=== PATIENT | female | born 1955 | race Caucasian/White ===

== ENCOUNTER 2019-06-10 22:08 | Emergency (ER) | payer OTHER ==
[~2019-06-10] VITALS: Ht 172.7 cm; Wt 108.9 kg
[2019-06-10] MEDS ORDERED: CARDURA8 MG (22:24)
[2019-06-11] MEDS ORDERED: ZOFRAN8 MG PO (05:22)
[2019-06-11] MEDS ORDERED: PEPCID40 MG PO (05:22)
== END 2019-06-11 05:39 | disposition home or self-care (01) ==
LOC: ER 22:08
DX: K29.60 Other gastritis without bleeding (principal)

== ENCOUNTER 2020-03-31 13:44 | Emergency (ER) | payer OTHER ==
[~2020-03-31] VITALS: Ht 172.7 cm; Wt 121.6 kg
[~2020-03-31 13:44] MED LIST: CARDURA8 MG; PEPCID40 MG PO; ZOFRAN8 MG PO
[2020-03-31] MEDS ORDERED: ALDACTONE25 MG (13:59)
[2020-03-31] MEDS ORDERED: VITAMIN D31250 MCG (13:59)
[2020-03-31] MEDS ORDERED: GABAPENTIN800 M1 (14:00)
[2020-03-31] MEDS ORDERED: DULOXETINE HCL40 MG (14:00)
[2020-03-31] MEDS ORDERED: SIMVASTATIN40 MG (14:00)
[2020-03-31] MEDS ORDERED: SULFASALAZINE500 M1 (14:01)
[2020-03-31] MEDS ORDERED: SINGULAIR10 MG (14:02)
[2020-03-31] MEDS ORDERED: PREDNISONE10 M2 (14:02)
[2020-03-31] MEDS ORDERED: [UNRECOGNIZED DRUG - OTHER] (14:03)
[2020-03-31] MEDS ORDERED: ANASTROZOLE1 MG (14:04)
[2020-03-31] MEDS ORDERED: TRADJENTA5 MG (14:04)
== END 2020-03-31 19:27 | disposition home or self-care (01) ==
LOC: ER 13:44
DX: J90 Pleural effusion, not elsewhere classified (principal); I31.3 Pericardial effusion (noninflammatory); R10.13 Epigastric pain; K76.0 Fatty (change of) liver, not elsewhere classified; J98.11 Atelectasis; N28.1 Cyst of kidney, acquired; Z03.818 Encounter for observation for suspected exposure to other biological agents ruled out

== ENCOUNTER 2024-07-09 10:34 | Emergency (ER) | payer OTHER ==
[~2024-07-09] VITALS: Ht 172.7 cm; Wt 88.5 kg
[~2024-07-09 10:34] MED LIST changes: +ALDACTONE25 MG; +ANASTROZOLE1 MG; +DULOXETINE HCL40 MG; +GABAPENTIN800 M1; +PREDNISONE10 M2; +SIMVASTATIN40 MG; +SINGULAIR10 MG; +SULFASALAZINE500 M1; +TRADJENTA5 MG; +VITAMIN D31250 MCG; +[UNRECOGNIZED DRUG - OTHER]
[2024-07-09] MEDS ORDERED: MEPERIDINE HCL/PF 25 MG/ML VIAL IM ONE (12:45)
[2024-07-09 13:33] LABS: PH,URINE 5.5 (5.0-8.0); URINE APPEARANCE Clear; URINE BILIRRUBIN Negative (NEGATIVE); URINE BLOOD Negative; URINE COLOR Yellow; URINE GLUCOSE Negative (NEGATIVE); URINE KETONE Trace (NEGATIVE); URINE LEUKOCYTE Trace; URINE NITRATE Negative; URINE PROTEIN Negative (NEGATIVE); URINE UROBILINOGEN 0.2 E.U./dl
[2024-07-09 13:34] LABS: URINE BACTERIA 3138.2 uL (0.0-1933); URINE CAST 5.59 uL (0.0-1.40); URINE EPITHELIAL CELLS 83.7 uL (0.0-38.8); URINE RBC 13.8 uL (0.0-20.8); URINE WBC 41.1 uL (0.0-23.2)
[2024-07-09 13:38] LABS: HEMOGLOBIN 13.1 g/dL (12.0-15.00); MEAN CELL VOLUME 98.5 fL (80.00-100.00); MEAN CORPUSCULAR HEMOGLOBIN 33.1 pg (27.00-32.0); MEAN CORPUSCULAR HGB CONC 33.6 g/dl (32.0-36.0); PLATELET COUNT 202 K/uL (150-450); RED BLOOD COUNT 3.96 M/uL (4.00-6.00); RED CELL DISTRIBUTION WIDTH 13.6 % (11.5-14.5)
[2024-07-09 14:20] LABS: ALBUMIN 3.6 gm/dL (3.4-5.0); BILIRUBIN TOTAL 0.46 mg/dL (0.3-1.2); CALCIUM 9.4 mg/dL (8.5-10.1); CREATININE SERUM 1.72 mg/dL (0.55-1.02); GFR 29.4; GLOBULINA 3.5 G/DL (2.4-3.5); POTASSIUM 4.12 mEq/L (3.5-5.1); TOTAL PROTEIN 7.1 gm/dL (6.4-8.2)
[2024-07-09] MEDS ORDERED: BACTRIM DS TAB1 EACH PO (14:24)
[2024-07-09] MEDS ORDERED: PEPCID AC20 MG PO (14:24)
[2024-07-09] MEDS ORDERED: KETOROLAC TROMETHAMINE 60 MG VIAL IM ONE (14:30)
[2024-07-09] MEDS ORDERED: KETOROLAC TROMETHAMINE 30 MG VIAL ONE (14:36)
== END 2024-07-09 14:39 | disposition home or self-care (01) ==
LOC: ER 10:36
PROVIDERS: General Practice
DX: R55 Syncope and collapse (principal); N39.0 Urinary tract infection, site not specified; E11.9 Type 2 diabetes mellitus without complications; Z79.84 Long term (current) use of oral hypoglycemic drugs; I10 Essential (primary) hypertension; M46.80 Other specified inflammatory spondylopathies, site unspecified; W18.39XA Other fall on same level, initial encounter; Y93.89 Activity, other specified; Y92.89 Other specified places as the place of occurrence of the external cause
CPT/HCPCS: 36415; 70450; 71045; 72125; 72170; 73110; 73560; 93005; 96372; 99284; J1885

== ENCOUNTER 2024-08-22 11:45 | Emergency (ER) | payer OTHER ==
[~2024-08-22] VITALS: Ht 172.7 cm; Wt 81.6 kg
[~2024-08-22 11:45] MED LIST changes: +BACTRIM DS TAB1 EACH PO; +PEPCID AC20 MG PO
[2024-08-22] MEDS ORDERED: IPRATROPIUM/ALBUTEROL SULFATE 3 ML AMPUL.NEB IH SCH (12:30)
[2024-08-22] MEDS ORDERED: GUAIFEN/DEXTROMETHORPHAN/PE 10 ML BLIST.PACK PO ONE ×2 (12:30→15:45)
[2024-08-22 13:09] LABS: HEMATOCRIT 38.8 % (36.0-45.00); HEMOGLOBIN 13.1 g/dL (12.0-15.00); MEAN CORPUSCULAR HEMOGLOBIN 33.4 pg (27.00-32.0); MEAN CORPUSCULAR HGB CONC 33.7 g/dl (32.0-36.0); PLATELET COUNT 186 K/uL (150-450); RED BLOOD COUNT 3.92 M/uL (4.00-6.00); RED CELL DISTRIBUTION WIDTH 13.8 % (11.5-14.5)
[2024-08-22 13:22] LABS: ALBUMIN 3.5 gm/dL (3.4-5.0); BILIRUBIN TOTAL 0.41 mg/dL (0.3-1.2); CALCIUM 9.3 mg/dL (8.5-10.1); CREATININE SERUM 1.45 mg/dL (0.55-1.02); GFR 35.8; GLOBULINA 3.6 G/DL (2.4-3.5); POTASSIUM 3.5 mEq/L (3.5-5.1); TOTAL PROTEIN 7.1 gm/dL (6.4-8.2)
[2024-08-22 15:08] LABS: ABG PO2 73.7 mmHg (80-100); ABG pCO2 38.3 mmHg (35-45); BASE EXCESS 2.8 mmol/l; BICARBONATE 26.6 mmol/l (23-25); SaO2 95.6 %; Tco2 27.8 mmol/l; allen test SATISFACTORY; o2 21 %; puncture site RADIAL RIGHT
[2024-08-22] MEDS ORDERED: IPRATROPIUM/ALBUTEROL SULFATE 3 ML AMPUL.NEB IH ONE (15:45)
== END 2024-08-22 16:09 | disposition home or self-care (01) ==
LOC: ER 11:48
PROVIDERS: Emergency Medicine
DX: R06.02 Shortness of breath (principal); Z20.822 Contact with and (suspected) exposure to COVID-19